=== PATIENT | male | born 1935 | race Caucasian/White ===

== ENCOUNTER 2017-06-20 10:23 | Observation (INO) | payer MEDICARE, BC ==
[2017-06-20] MEDS ORDERED: NS 0.9% 1000 ML* 1,000 ML IV ONE (10:34)
[2017-06-20 10:51] LABS: Hematocrit 42 % (42-52); Hemoglobin 14.4 g/dl (14.0-18.0); Mean Corpuscular HGB Conc 34 g/dl (31-36); Mean Corpuscular Hemoglobin 31 pg (27-31); Mean Corpuscular Volume 90 fL (80-94); Mean Platelet Volume 9 um3 (7.4-10.4); Red Blood Count 4.69 10^6/ul (4.0-5.4); Red Cell Distribution Width 15 % (10.5-15)
--- NOTE | 2017-06-20 10:52 | RAD ---
HISTORY: Neurological changes COMPARISONS: None TECHNIQUE: Multiple contiguous axial CT scans were obtained of the head without intravenous contrast. FINDINGS: HEMORRHAGE/INFARCT: There is no hemorrhage or acute infarct. MASSES/SHIFT: There is no mass or shift. EXTRA-AXIAL SPACES: There are no extra-axial fluid collections. SULCI AND VENTRICLES: A ventricular shunt catheter is noted from right frontal craniotomy approach with the tip in the body of the left lateral ventricle. There is no ventriculomegaly. CEREBRUM: There is left parietal encephalomalacia consistent with remote infarct BRAINSTEM: There are no focal parenchymal abnormalities. CEREBELLUM: There are no focal parenchymal abnormalities. VESSELS: There is calcification of the cavernous segments of the internal carotid arteries bilaterally. PARANASAL SINUSES: The paranasal sinuses are clear. ORBITS: The orbits are unremarkable. BONES AND SOFT TISSUE: No bone or soft tissue abnormalities are noted. OTHER: None IMPRESSION: . 1. STATUS POST VENTRICULAR SHUNTING. 2. EVIDENCE OF REMOTE LEFT PARIETAL INFARCT. 3. NO ACUTE INTRACRANIAL PATHOLOGY. 4. PRELIMINARY FINDINGS WERE DISCUSSED WITH DR. MEJIA IN THE EMERGENCY DEPARTMENT AT APPROXIMATELY 10:45 AM ON 2016.
[2017-06-20 11:04] LABS: Albumin 4.6 g/dL (3.2-5.2); BUN/Creatinine Ratio 17.8 (8-20); Calcium 9.9 mg/dL (8.6-10.3); EGFR African American 54.8 (>60); EGFR Non-African American 42.6 (>60); Globulin 3.1 g/dL (2-4); HDL Cholesterol 40.3 mg/dL; Potassium 4.6 mmol/L (3.5-5.0); Total Bilirubin 1.2 mg/dL (0.2-1.0); Total Protein 7.7 g/dL (6.4-8.9)
--- NOTE | 2017-06-20 11:11 | RAD ---
HISTORY: Neurological changes COMPARISONS: None VIEWS: 1: frontal portable view of the chest at 10:58 AM FINDINGS: LINES AND TUBES: A left-sided pacemaker is noted CARDIOMEDIASTINAL SILHOUETTE: The cardiomediastinal silhouette is normal for portable technique. PLEURA: The costophrenic angles are sharp. No pleural abnormalities are noted. LUNG PARENCHYMA: The lungs are clear. ABDOMEN: The upper abdomen is clear. There is no subphrenic gas. BONES AND SOFT TISSUES: The patient is status post median sternotomy. IMPRESSION: NO ACTIVE CARDIOPULMONARY DISEASE.
[2017-06-20 12:03] LABS: Urine Bilirubin Negative (Negative); Urine Glucose Negative (Negative); Urine Nitrite Negative (Negative)
[2017-06-20] MEDS ORDERED: Al Hydrox/Mg Hydrox/Simet LIQ* 30 ML UDC PO PRN (13:11)
--- NOTE | 2017-06-20 15:28 | CONS ---
NEUROLOGY CONSULTATION: DATE OF CONSULT: 06/20/17 REASON FOR CONSULT: Christina Whitehead. HISTORY OF PRESENT ILLNESS: Mr. Fine is an 81-year-old man with a history of left parietal stroke in February of this year, who made a good recovery as well as history of pacemaker placement within the last 2 months, in addition to SODA FLAKER shunt secondary to NPH as well as subarachnoid hemorrhage secondary to a fall who presented with right hand weakness/numbness, which he noticed when he woke up this morning. History is obtained from discussion with the patient as well as discussion with Dr. Ambrose, who spoke with the patient's . She is coming to [place] from [place] and will be available later today for further clarification. The patient is unable to tell me for certain whether he was normal when he woke up this morning. He noticed that he was having difficulty holding a bar of soap with his right hand. In addition, he specifically noticed difficulty with flexion of the first 3 fingers on the right hand and they felt numb as well. He denies any new speech or vision difficulties. He says he has been having a bit more trouble with his walking over the past week or so, but nothing dramatically different this morning. He spoke with his regarding these symptoms over the phone and she advised that he be brought to the emergency department. He is in town for a meeting for the [employer] [facility] and actually lives [employer] in [place] and [employer] [place]. It sounds like his regular physicians are in [place], [place]. After his stroke, he was started on a baby aspirin and he also takes a small dose of Crestor. Within the last 6 to 8 weeks, he has also been started on Aricept, which he says is for memory difficulties that he has been having, more so since his stroke. His stroke symptoms apparently involved weakness on his right side as well as sensory disturbance on the right side, mental status changes which the described as him not knowing her name or even who she was and also visual field loss, off to the right. He has apparently recovered quite well from all of this with little if any residual motor or sensory deficit. He has not driven since the stroke. Today, he denies any new headache. He feels that his hand has remained essentially the same since he noticed the onset of symptoms. PAST MEDICAL HISTORY: Likely incomplete as I am relying on the patient's recall of his history and he admits to not paying much attention to his medical history in general, but includes: 1. Left parietal stroke in February 2017. 2. Pacemaker placement within the last 2 months. 3. 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 4. Hyperlipidemia. 5. Subarachnoid hemorrhage, status post a minor fall. 6. Normal pressure hydrocephalus, status post SODA FLAKER shunt within the past 2 years. 7. The patient also reports that he had a left eye injury as a result of a tennis ball hitting him, which resulted in a pupillary injury. HOME MEDICATIONS: 1. Donepezil daily. 2. Aspirin 81 mg daily. 3. Crestor 5 mg daily. 4. Vitamin B12. 5. Vitamin D 2000 units daily. ALLERGIES: CLOPIDOGREL and LISINOPRIL which he started at the same time in the past and developed hypotension and hives. FAMILY HISTORY: Noncontributory at this time. SOCIAL HISTORY: He lives with his [place] REVIEW OF SYSTEMS: As per the HPI, otherwise negative. PHYSICAL EXAM: Vital Signs: Temperature 99, blood pressure 133/56, heart rate 72, oxygen saturation is 100% on room air. I note that there is the record of an oxygen saturation of 67% noted in the computer, but I suspect this is an error. On general examination, he is in no acute distress. He is an elderly pleasant gentleman. His heart is in a regular rate and rhythm with no murmurs, rubs or gallops. No carotid bruits are auscultated. The lungs are clear to auscultation bilaterally. There are some arthritic changes in the joints, but no erythema or swelling. Skin is notable for a well-healed pacemaker incision in the left upper chest. On neurologic examination, his speech is fluent without dysarthria or aphasia. He was able to state his age and the month, but it took him quite a bit of time to come up with the month. He was off on the exact date by 1 day. His pupils were unequal with the left being irregular and approximately 4 mm and poorly reactive while the right was 3 mm and briskly reactive to 2 mm. Versions are full without nystagmus. His dill are full to confrontation with no extinction to double simultaneous stimulation. Facial sensation and musculature are full and symmetric. Hearing is intact to voice. The palate elevates symmetrically and the tongue is midline. On motor examination, there is mildly increased tone in the right upper extremity. His strength is full throughout with the exception of digital marketing officer on the right as well as flexion in the second and third digits on the right hand. He had clumsy finger taps on the right. Sensation was intact to light touch and pin prick in the upper and lower extremities including all fingers on the right hand, but there was extinction distally to double simultaneous stimulation on the right side. Reflexes are 2+ in the upper and lower extremities with downgoing toes. No significant ataxia was noted. His gait is slightly wide based, but overall steady with his walking stick held in his right hand, but not typically placed down on the floor. DIAGNOSTIC STUDIES/LAB DATA: CBC was overall unremarkable, notable only for a slightly elevated monocyte percentage of 10.9%. Coagulation studies were normal. His CMP was notable for an elevated creatinine of 1.57 and BUN of 28, total bilirubin of 1.2. Non-fasting lipids show triglycerides of 220, cholesterol 150, LDL 66, HDL 40. His glucose was normal at 76. A non-contrast brain CT was obtained on arrival, but I have been unable to view that in the emergency department secondary to technical difficulty with the web browser. The report indicates there is no evidence for hemorrhage or acute or subacute infarction. There is a ventricular shunt noted from a right frontal craniotomy approach with the tip in the body of the left lateral ventricle. There is no significant ventriculomegaly. There is also left parietal encephalomalacia consistent with remote infarct. There is calcification of the cavernous segments of the internal carotid arteries noted bilaterally. IMPRESSION: Edgar Fine is an 81-year-old man with multiple neurologic problems including stroke affecting the left parietal region in February of this year on a baby aspirin and statin, who presented with recrudescence of symptoms , which are attributable to the area of his prior stroke. His NIH stroke scale today is notable only for the extinction to double simultaneous stimulation and may be an old finding. He does have some incoordination and weakness in his right hand which is not globally affected, but could be the result of a recurrent stroke versus, as mentioned, recrudescence of old symptoms. He should be admitted to the hospital for monitoring. We should get carotid ultrasound and continue him on his aspirin at this time. I am unaware at this time what the etiology of his previous stroke is thought to have been or the specific reason for his pacemaker implantation. I note that another possibility for his symptoms could be an unwitnessed seizure from this previous stroke, but there is no history obtained that suggests the loss of awareness or involuntary motor activity, but we could consider obtaining EEG if this becomes more of a possibility during the time of his admission. He is unable to get an MRI because of his pacemaker. Urinalysis will also be obtained to evaluate for any signs of urinary tract infection, which could be contributing to worsening of old symptoms. Thank you for this consultation. [id number]/MONALISA #: [id number] ADWOA
[2017-06-20] MEDS: Heparin VIAL(*) 5000 UNITS/ML VIAL (FIVE THOUSAND) SUBCUT SCH ×2 (16:16→23:12)
[2017-06-20] MEDS: NS 0.9% 1000 ML* 1,000 ML IV SCH (16:28)
--- NOTE | 2017-06-20 18:04 | RAD ---
INDICATION: CVA COMPARISON: CT brain June 20, 2017 TECHNIQUE: Transverse and longitudinal scans of the carotid and vertebral arteries were performed with bryant scale, color Doppler, and spectral Doppler imaging. Stenosis criteria is based on flow velocities that correlate with visual internal carotid artery diameter (NASCET criteria) FINDINGS: Right carotid: There is mild calcific plaque involving the bifurcation. There is no spectral broadening. The peak systolic velocity of the internal carotid artery is 163 cm/s and the peak diastolic velocity 19 cm/s. The ICA/CCA ratio is calculated at 1.1. This corresponds to a less than 50% diameter stenosis. Left carotid: There is mild calcific plaque involving the bifurcation. There is no spectral broadening. The peak systolic velocity of the internal carotid artery is 162 cm/s and the peak diastolic velocity 31 cm/s. The ICA/CCA ratio is calculated at 1.2. This corresponds to a less than 50% diameter stenosis. Right vertebral: Right vertebral waveforms are normal and the flow is antegrade. Left vertebral: Left vertebral waveforms are normal and the flow is antegrade. IMPRESSION: NO EVIDENCE OF A HEMODYNAMICALLY SIGNIFICANT STENOSIS. CPT II Codes: 3100F RS
--- NOTE | 2017-06-20 18:29 | HP ---
HISTORY AND PHYSICAL: DATE OF ADMISSION: 06/20/17 CHIEF COMPLAINT: Right hand numbness. HISTORY OF PRESENT ILLNESS: This is an 81-year-old man with history of a CVA in February 2017, presenting with right second and third digit numbness and weakness that began this morning. He noticed it when he first woke up and was unable to bindery manager cups or any other items. He notes a cold sensation in the second and third digits, but denies any other symptoms. He called his who encouraged him to come to the emergency department. He recalls that in his stroke in February, he had entire right upper extremity weakness and confusion. Of note, he has no residual deficits from his prior CVA and had reportedly regained all strength in all digits of his right upper extremity. He denies recent illness with cough , cold, sore throat, rhinorrhea, diarrhea, but he does note some dysuria. 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 MEDICATIONS: Current home medications; 1. Vitamin B12 5000 mcg daily. 2. Rosuvastatin 5 mg daily. 3. Aspirin 81 mg daily. 4. Vitamin D 2000 units daily. 5. Donepezil 10 mg daily. 6. Naproxen p.r.n. ALLERGIES: LISINOPRIL and PLAVIX. REVIEW OF SYSTEMS: Negative for weight gain or weight loss. Negative for headache, blurry vision, or dysphagia. He denies cough, chest pain, shortness of breath, palpitations. He denies gait abnormalities or recent falls. PHYSICAL EXAMINATION GENERAL: Alert, well-appearing man in no distress. VITAL SIGNS: Temperature 97.2, heart rate 74, pulse ox 91% on room air, blood pressure 134/63, respiratory rate 18. HEENT: Left pupillary defect due to a tennis injury. Left pupil is 4 mm and mildly reactive to light. Right pupil is 2 mm and reactive to light. Extraocular movements are intact. No nystagmus is noted. Moist mucosa. NECK: No lymphadenopathy. No JVP. Thyroid nonpalpable. CHEST: Pacemaker on left chest wall. LUNGS: Clear bilaterally. HEART: Regular rate and rhythm. No murmurs. PMI is nondisplaced. ABDOMEN: Soft, nontender, nondistended. EXTREMITIES: Strength 5+ bilaterally. No edema, no ecchymosis. NEUROLOGIC: Oriented x3. Speech intact. Upper extremity strength is 5+ except in his right second digit which is 3+ and third digit is 4+. He does have some dysdiadochokinesia in the right upper extremity. Reflexes are 2+ and finger-to- nose is intact. LABORATORY DATA: Labs on admission; hemoglobin 14.4, white blood cells 8.0, platelets 173,000. Sodium 138, potassium 4.6, chloride 106, bicarb 25, BUN 28, creatinine 1.57, glucose 76. EKG on admission, normal sinus rhythm with first degree heart block, left axis and right bundle-branch block. ASSESSMENT AND PLAN: This is an 81-year-old man with history of cerebrovascular accident in February of this year, presenting with right index finger weakness. 1. Cerebrovascular accident, recrudescent symptoms. A CT of head showed no acute intracranial abnormality and unfortunately, he is unable to get an MRI due to his pacemaker. It is possible that an infectious or metabolic cause led to his recrudescent symptoms; however, his symptoms today are not entirely reflective of his symptoms in February. Neurology has been consulted and seen Mr. Fine in the emergency department. We will monitor him on telemetry and consult occupational therapy for therapy of the right upper extremity. We will complete an infectious workup and continue statin and aspirin. It is unclear why he was on such a low dose of statin, so I am increasing him to atorvastatin 40 mg daily as there is suspicion that he had a repeat cerebrovascular accident while on aspirin. He may benefit from additional antiplatelet therapy; however , PLAVIX is noted as an allergy for him; however, he does not know his reaction. 2. Acute kidney injury versus chronic kidney disease. We have no creatinine for comparison; however, he does report limiting his p.o. intake due to urinary incontinence associated with normal pressure hydrocephalus, so it is possible that he does have some prerenal injury. At this time, we will trial gentle IV fluids and recheck renal function in the morning. 3. Cognitive dysfunction since CVA. Continue donepezil. 4. Coronary artery disease status post CABG. Continue aspirin and statin as above. 5. Normal pressure hydrocephalus, PLUMBING HARDWARE ASSEMBLER shunt is noted on his CT scan. It is unlikely that this is contributing to his symptoms this morning. 6. DVT prophylaxis. Heparin subcutaneously. [id number]/[facility] #: [id number] ADWOA
[2017-06-20] MEDS ORDERED: Atorvastatin* 40 MG TAB PO SCH (21:00)
[2017-06-20] MEDS ORDERED: Donepezil TAB* 5 MG PO SCH (21:00)
--- NOTE | 2017-06-20 22:28 | ED ---
Jules Mcarthur Thomas, scribed for Edgar Ambrose MD on 06/20/17 at 1047 . Neurological HPI - HPI Summary HPI Summary: The patient is an 81 y/o M with a Hx of CVA on 02/23/17 who presents to the ED c /o neurological deficits that began today between 07:00 and 08:00. He describes an inability to close his left hand and hold objects in his left hand. He says that he repeatedly dropped the soap in the shower this AM and he could not button his shirt. He additionally complains of minor problems with his gait in the last two days. He also says he has intermittent minor confusion throughout this AM. In the ED the patient denies slurred speech, CP, SOB, BARR, or any other pain. After the patients previous CVA, he was aphasic, had no balance, and could not walk. Since then, his speech and deficits have dramatically improved, although he does note some residual motor deficits in his right hand. He denies any recent stress, although he did recently drive from [place]. PMHx: CVA, Reynaulds, CAD, NPH, SAH. PSHx: pacemaker, BAKED AND GRAPHITE INSPECTOR shunt, two spinal operations, cardiac stents. NIH 0. I spoke with the patients , who gave me additional history about his CVA in February. That stroke started with vertigo, R-sided paralysis, confusion, and disorientation. He was not given tPA because of a prvious SAH after a fall. Quickly over the course of a couple days he regained all but fine motor control of his right hand and some gait problems. Then, through physical therapy he regained his gain and improved fine motor control except that his handwriting is still poor. He had a syncopal episode two months ago and after this he wore an event monitor that showed an intermittent heart block for which a pacer was placed. 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 - History of Current Complaint Chief Complaint: EDNeurologicalDeficit Stated Complaint: POSS STROKE Hx Obtained From: Patient Onset/Duration: Sudden Onset, Started hours ago - onset between 07:00 and 08:00 today, Still Present Timing: Constant Current Severity: Mild Pain Intensity: 0 Pain Scale Used: 0-10 Numeric Character: Motor Weakness - with his left hand, Confusion - intermittent this AM and minor Aggravating: Nothing Alleviating: Nothing Associated Signs and Symptoms: Positive: Confusion - intermittent and minor. Negative: Headache, Impaired Speech, Chest Pain, Shortness of Breath Similar Episode/Dx as: Somewhat similar to prior CVA - Allergy/Home Medications Allergies/Adverse Reactions: Allergies Allergy/AdvReac Type Severity Reaction Status Date / Time Clopidogrel [From Plavix] Allergy Unknown Verified 06/20/17 11:18 Reaction Details Lisinopril Allergy Unknown Verified 06/20/17 11:18 Reaction Details Home Medications: Home Medications Aspirin EC Low Dose* [Ecotrin EC Low Dose 81 MG*] 81 mg PO DAILY 06/20/17 [ History Confirmed 06/20/17] Cholecalciferol TAB* [Vitamin D TAB*] 2,000 units PO DAILY 06/20/17 [History Confirmed 06/20/17] Cyanocobalamin [Vitamin B-12] 5,000 mcg PO DAILY 06/20/17 [History Confirmed ] Donepezil TAB* [Aricept 5 MG TAB*] 10 mg PO DAILY 06/20/17 [History Confirmed ] Naproxen Sodium [Naproxen Sodium 220 mg] 220 mg PO Q6HR PRN 06/20/17 [History Confirmed 06/20/17] Rosuvastatin (NF) [Crestor (NF)] 5 mg PO DAILY 06/20/17 [History Confirmed 06/20] PMH/Surg Hx/FS Hx/Imm Hx Previously Healthy: No Cardiovascular History: Reports: Hx Coronary Artery Disease Neurological History: Reports: Hx CVA, Other Neuro Impairments/Disorders - Hx SAH, Reynauld's - Surgical History Surgery Procedure, Year, and Place: pacemaker, BAKED AND GRAPHITE INSPECTOR shunt, two spinal operations, cardiac stents. Infectious Disease History: Denies: Traveled Outside the [place] in Last 30 Days - Family History Known Family History: Positive: Other - POS: CVA - Social History Alcohol Use: Occasionally Hx Substance Use: No Substance Use Type: Reports: None Hx Tobacco Use: No Smoking Status (MU): Never Smoked Tobacco Review of Systems Negative: Fever Negative: Chest Pain Negative: Shortness Of Breath Negative: Other - NEG: any other pain Neurological: Other - POS: left hand motor deficits (onset 08:00), problems with gait (onset two days ago), intermittent confusion (throughout this AM) Negative: Headache, Slurred Speech All Other Systems Reviewed And Are Negative: Yes Physical Exam Triage Information Reviewed: Yes Vital Signs On Initial Exam: Initial Vitals Temp Pulse Resp BP Pulse Ox 97.9 F 80 10 147/90 99 06/20/17 10:25 06/20/17 10:25 06/20/17 10:25 06/20/17 10:25 06/20/17 10:25 Vital Signs Reviewed: Yes Appearance: Positive: Well-Appearing, No Pain Distress Skin: Positive: Warm, Skin Color Reflects Adequate Perfusion, Dry Head/Face: Positive: Normal Head/Face Inspection Eyes: Positive: Normal ENT: Positive: Normal ENT inspection Neck: Positive: Supple, Nontender Respiratory/Lung Sounds: Positive: Clear to Auscultation, Breath Sounds Present Cardiovascular: Positive: RRR Abdomen Description: Positive: Nontender, Soft Bowel Sounds: Positive: Present Musculoskeletal: Positive: Normal Neurological: Positive: Normal, Sensory/Motor Intact, Alert, Oriented to Person Place, Time, CN Intact II-III Psychiatric: Positive: Normal, Affect/Mood Appropriate Diagnostics - Vital Signs Vital Signs Temp Pulse Resp BP Pulse Ox 06/20/17 10:25 97.9 F 80 10 147/90 99 - Laboratory Lab Results: Lab Results 06/20/17 06/20/17 06/20/17 Range/Units 10:28 10:28 10:28 WBC 8.0 (3.5-10.8) 10^3/ul RBC 4.69 (4.0-5.4) 10^6/ul Hgb 14.4 (14.0-18.0) g/dl Hct 42 (42-52) % MCV 90 (80-94) fL MCH 31 (27-31) pg MCHC 34 (31-36) g/dl RDW 15 (10.5-15) % Plt Count 173 (150-450) 10^3/ul MPV 9 (7.4-10.4) um3 Neut % (Auto) 58.5 (38-83) % Lymph % (Auto) 26.3 (25-47) % [place] % (Auto) 10.9 H (1-9) % Eos % (Auto) 3.6 (0-6) % Baso % (Auto) 0.7 (0-2) % Absolute Neuts (auto) 4.7 (1.5-7.7) 10^3/ul Absolute Lymphs (auto) 2.1 (1.0-4.8) 10^3/ul Absolute Monos (auto) 0.9 H (0-0.8) 10^3/ul Absolute Eos (auto) 0.3 (0-0.6) 10^3/ul Absolute Basos (auto) 0.1 (0-0.2) 10^3/ul Absolute Nucleated RBC 0 10^3/ul Nucleated RBC % 0 INR (Anticoag Therapy) 0.91 (0.89-1.11) APTT 30.4 (26.0-36.3) seconds Sodium 138 (133-145) mmol/L Potassium 4.6 (3.5-5.0) mmol/L Chloride 106 (101-111) mmol/L Carbon Dioxide 25 (22-32) mmol/L Anion Gap 7 (2-11) mmol/L BUN 28 H (6-24) mg/dL Creatinine 1.57 H (0.67-1.17) mg/dL Est GFR ( Amer) 54.8 (>60) Est GFR (Non-Af Amer) 42.6 (>60) BUN/Creatinine Ratio 17.8 (8-20) Glucose 76 (70-100) mg/dL POC Glucose (mg/dL) (70-100) mg/dL Lactic Acid (0.5-2.0) mmol/L Calcium 9.9 (8.6-10.3) mg/dL Total Bilirubin 1.20 H (0.2-1.0) mg/dL AST 22 (13-39) U/L ALT 14 (7-52) U/L Alkaline Phosphatase 47 (34-104) U/L Troponin I 0.00 (<0.04) ng/mL Total Protein 7.7 (6.4-8.9) g/dL Albumin 4.6 (3.2-5.2) g/dL Globulin 3.1 (2-4) g/dL Albumin/Globulin Ratio 1.5 (1-3) Triglycerides 220 mg/dL Cholesterol 150 mg/dL LDL Cholesterol 66 mg/dL HDL Cholesterol 40.3 mg/dL Urine Color Urine Appearance Urine pH (5-9) Ur Specific [place] (1.010-1.030) Urine Protein (Negative) Urine Ketones (Negative) Urine Blood (Negative) Urine Nitrate (Negative) Urine Bilirubin (Negative) Urine Urobilinogen (Negative) Ur Leukocyte Esterase (Negative) Urine Glucose (Negative) Urine Ascorbic Acid (Negative) Blood Type Antibody Screen 06/20/17 06/20/17 06/20/17 Range/Units 10:28 10:28 10:48 WBC (3.5-10.8) 10^3/ul RBC (4.0-5.4) 10^6/ul Hgb (14.0-18.0) g/dl Hct (42-52) % MCV (80-94) fL MCH (27-31) pg MCHC (31-36) g/dl RDW (10.5-15) % Plt Count (150-450) 10^3/ul MPV (7.4-10.4) um3 Neut % (Auto) (38-83) % Lymph % (Auto) (25-47) % [place] % (Auto) (1-9) % Eos % (Auto) (0-6) % Baso % (Auto) (0-2) % Absolute Neuts (auto) (1.5-7.7) 10^3/ul Absolute Lymphs (auto) (1.0-4.8) 10^3/ul Absolute Monos (auto) (0-0.8) 10^3/ul Absolute Eos (auto) (0-0.6) 10^3/ul Absolute Basos (auto) (0-0.2) 10^3/ul Absolute Nucleated RBC 10^3/ul Nucleated RBC % INR (Anticoag Therapy) (0.89-1.11) APTT (26.0-36.3) seconds Sodium (133-145) mmol/L Potassium (3.5-5.0) mmol/L Chloride (101-111) mmol/L Carbon Dioxide (22-32) mmol/L Anion Gap (2-11) mmol/L BUN (6-24) mg/dL Creatinine (0.67-1.17) mg/dL Est GFR ( Amer) (>60) Est GFR (Non-Af Amer) (>60) BUN/Creatinine Ratio (8-20) Glucose (70-100) mg/dL POC Glucose (mg/dL) 87 (70-100) mg/dL Lactic Acid 1.1 (0.5-2.0) mmol/L Calcium (8.6-10.3) mg/dL Total Bilirubin (0.2-1.0) mg/dL AST (13-39) U/L ALT (7-52) U/L Alkaline Phosphatase (34-104) U/L Troponin I (<0.04) ng/mL Total Protein (6.4-8.9) g/dL Albumin (3.2-5.2) g/dL Globulin (2-4) g/dL Albumin/Globulin Ratio (1-3) Triglycerides mg/dL Cholesterol mg/dL LDL Cholesterol mg/dL HDL Cholesterol mg/dL Urine Color Urine Appearance Urine pH (5-9) Ur Specific [place] (1.010-1.030) Urine Protein (Negative) Urine Ketones (Negative) Urine Blood (Negative) Urine Nitrate (Negative) Urine Bilirubin (Negative) Urine Urobilinogen (Negative) Ur Leukocyte Esterase (Negative) Urine Glucose (Negative) Urine Ascorbic Acid (Negative) Blood Type A Positive Antibody Screen Negative 06/20/17 Range/Units 11:35 WBC (3.5-10.8) 10^3/ul RBC (4.0-5.4) 10^6/ul Hgb (14.0-18.0) g/dl Hct (42-52) % MCV (80-94) fL MCH (27-31) pg MCHC (31-36) g/dl RDW (10.5-15) % Plt Count (150-450) 10^3/ul MPV (7.4-10.4) um3 Neut % (Auto) (38-83) % Lymph % (Auto) (25-47) % [place] % (Auto) (1-9) % Eos % (Auto) (0-6) % Baso % (Auto) (0-2) % Absolute Neuts (auto) (1.5-7.7) 10^3/ul Absolute Lymphs (auto) (1.0-4.8) 10^3/ul Absolute Monos (auto) (0-0.8) 10^3/ul Absolute Eos (auto) (0-0.6) 10^3/ul Absolute Basos (auto) (0-0.2) 10^3/ul Absolute Nucleated RBC 10^3/ul Nucleated RBC % INR (Anticoag Therapy) (0.89-1.11) APTT (26.0-36.3) seconds Sodium (133-145) mmol/L Potassium (3.5-5.0) mmol/L Chloride (101-111) mmol/L Carbon Dioxide (22-32) mmol/L Anion Gap (2-11) mmol/L BUN (6-24) mg/dL Creatinine (0.67-1.17) mg/dL Est GFR ( Amer) (>60) Est GFR (Non-Af Amer) (>60) BUN/Creatinine Ratio (8-20) Glucose (70-100) mg/dL POC Glucose (mg/dL) (70-100) mg/dL Lactic Acid (0.5-2.0) mmol/L Calcium (8.6-10.3) mg/dL Total Bilirubin (0.2-1.0) mg/dL AST (13-39) U/L ALT (7-52) U/L Alkaline Phosphatase (34-104) U/L Troponin I (<0.04) ng/mL Total Protein (6.4-8.9) g/dL Albumin (3.2-5.2) g/dL Globulin (2-4) g/dL Albumin/Globulin Ratio (1-3) Triglycerides mg/dL Cholesterol mg/dL LDL Cholesterol mg/dL HDL Cholesterol mg/dL Urine Color Straw Urine Appearance Clear Urine pH 5.0 (5-9) Ur Specific [place] 1.011 (1.010-1.030) Urine Protein Negative (Negative) Urine Ketones Negative (Negative) Urine Blood Negative (Negative) Urine Nitrate Negative (Negative) Urine Bilirubin Negative (Negative) Urine Urobilinogen Negative (Negative) Ur Leukocyte Esterase Negative (Negative) Urine Glucose Negative (Negative) Urine Ascorbic Acid * H (Negative) Blood Type Antibody Screen Result Diagrams: 06/20/17 10:28 06/20/17 10:28 Lab Statement: Any lab studies that have been ordered have been reviewed, and results considered in the medical decision making process. - Radiology CXR Xray Interpretation: No Acute Changes - CXR reveals no active cardiopulmonary disease. ED Physician has reviewed this report and agrees. Radiology Interpretation Completed By: Radiologist - CT CT Brain CT Interpretation: No Acute Changes - 1. STATUS POST VENTRICULAR SHUNTING. 2. EVIDENCE OF REMOTE LEFT PARIETAL INFARCT. 3. NO ACUTE INTRACRANIAL PATHOLOGY. ED Physician has reviewed this report and agrees. CT Interpretation Completed By: Radiologist - EKG 10:43 Cardiac Rate: NL - 72 BPM EKG Interpretation: Sinus rhythm. RBBB. Nonspecified infeior changes. 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 Non-Paretic Hand: Both Correctly Best Gaze (Only Horizontal Eye Movement): Normal Visual Field Testing: No Visual Loss Facial Paresis-Pt to Smile & Close Eyes or Grimace Symmetry: Normal/Symmetrical Motor Function - Right Arm: No Drift-Holds 10 Seconds Motor Function - Left Arm: No Drift-Holds 10 Seconds Motor Function - Right Leg: No Drift-Holds 10 Seconds Motor Function - Left Leg: No Drift-Holds 10 Seconds Limb Ataxia-Must be out of Proportion to Weakness Present: Absent Sensory (Use Pinprick to Test Arms/Legs/Trunk/Face): Normal Best Language (Describe Picture, Name Items): No Aphasia Dysarthria (Read Several Words): Normal Extinction and Inattention: No Abnormality Total Score: 0 Course/Dx - Course Course Of Treatment: A Code Reddy was ordered on Mr. Fine's arrival and Dr. Begum came to see him. He was admitted for further W/U by the hospitalists. - Diagnoses Provider Diagnoses: CVA (cerebral vascular accident) - Physician Notifications Discussed Care Of Patient With: Mihaela Begum Time Discussed With Above Provider: 10:32 Instructed by Provider To: Other - I consulted with Dr. Begum, neurology, and she was made aware of the patient. She came to the ED at 10:52 to assess the patient. I also consulted with Dr. Herbert, hospitalist, who admits the patient at 11:40. Discharge - Discharge Plan Condition: Fair Disposition: ADMITTED TO [facility] Discharge Disposition Comment: By Keon at 11:40 The documentation as recorded by the Jules pickett Thomas accurately reflects the service I personally performed and the decisions made by me, Edgar Ambrose MD.
[2017-06-21] MEDS: NS 0.9% 1000 ML* 1,000 ML IV SCH ×2 (00:54→08:42)
[2017-06-21 04:52] LABS: Hematocrit 37 % (42-52); Hemoglobin 12.7 g/dl (14.0-18.0); Mean Corpuscular HGB Conc 34 g/dl (31-36); Mean Corpuscular Hemoglobin 31 pg (27-31); Mean Corpuscular Volume 91 fL (80-94); Mean Platelet Volume 9 um3 (7.4-10.4); Red Cell Distribution Width 15 % (10.5-15); White Blood Count 7.6 10^3/ul (3.5-10.8)
[2017-06-21 05:19] LABS: Albumin 3.6 g/dL (3.2-5.2); Calcium 8.9 mg/dL (8.6-10.3); EGFR African American 65.2 (>60); EGFR Non-African American 50.7 (>60); Globulin 2.3 g/dL (2-4); Potassium 4.1 mmol/L (3.5-5.0); Total Bilirubin 0.9 mg/dL (0.2-1.0); Total Protein 5.9 g/dL (6.4-8.9)
[2017-06-21] MEDS: Heparin VIAL(*) 5000 UNITS/ML VIAL (FIVE THOUSAND) SUBCUT SCH (06:21)
[2017-06-21 08:02] VITALS: BP 126/60
[2017-06-21] MEDS ORDERED: Cholecalciferol TAB* 1000 UNITS PO SCH (09:00)
[2017-06-21] MEDS ORDERED: Aspirin EC Low Dose* 81 MG TAB.EC PO SCH (09:00)
--- NOTE | 2017-06-21 11:18 | PN ---
Subjective Date of Service: 06/21/17 Interval History: Patient seen and examined at bedside. Denies fever, chills, shortness of breath , chest discomfort, N/V/D. Pt states that his control of his right index and middle fingers has improved. His is able to open and close his hand today. Per Pt's he had right arm weakness and loss of right visual field with his stroke in February, he reports that the right visual field loss has resolved. Pt's Madhavi also reports that the Pt has baseline CKD, she is unsure of the stage. Tele: Sinus rhythm to paced, rate 60-70's. Family History: Unchanged from Admission Social History: Unchanged from Admission Past Medical History: Unchanged from Admission Objective Active Medications: Al Hydrox/Mg Hydrox/Simethicone (Maalox Plus*) 30 ml PO Q6H PRN Reason: INDIGESTION Aspirin (Aspirin Ec Low Dose*) 81 mg PO DAILY MIKE Atorvastatin Calcium (Lipitor*) 40 mg PO 2100 MIKE Cholecalciferol (Vitamin D Tab*) 2,000 units PO DAILY MIKE Donepezil HCl (Aricept Tab*) 10 mg PO BEDTIME MIKE Heparin Sodium (Porcine) (Heparin Vial(*)) 5,000 units SUBCUT Q8HR MIKE Sodium Chloride (Ns 0.9% 1000 Ml*) 1,000 mls @ 125 mls/hr IV PER RATE MIKE Vital Signs 06/20/17 06/20/17 06/20/17 12:00 12:30 13:00 Temperature Pulse Rate 70 Respiratory 15 19 14 Rate Blood Pressure 145/64 152/68 117/55 (mmHg) O2 Sat by Pulse 99 Oximetry 06/20/17 06/20/17 06/20/17 13:30 13:49 15:44 Temperature 97.2 F 97.7 F Pulse Rate 74 73 Respiratory 16 18 18 Rate Blood Pressure 134/63 127/60 (mmHg) O2 Sat by Pulse 91 95 Oximetry 06/20/17 06/20/17 06/20/17 19:16 19:35 23:55 Temperature 97.9 F 97.6 F Pulse Rate 78 66 Respiratory 18 20 Rate Blood Pressure 116/53 118/54 (mmHg) O2 Sat by Pulse 100 96 Oximetry 06/21/17 06/21/17 03:52 08:00 Temperature 97.4 F 97.8 F Pulse Rate 63 72 Respiratory 20 16 Rate Blood Pressure 120/58 126/60 (mmHg) O2 Sat by Pulse 94 98 Oximetry Oxygen Devices in Use Now: None Appearance: NAD, laying in bed Ears/Nose/Mouth/Throat: Mucous Membranes Moist Respiratory: Symmetrical Chest Expansion and Respiratory Effort, Clear to Auscultation Cardiovascular: NL Sounds; No Murmurs; No JVD, RRR Abdominal: NL Sounds; No Tenderness; No Distention Extremities: No Edema Skin: No Rash or Ulcers Neurological: Alert and Oriented x 3, NL Muscle Strength and Tone, - - Smile symmetric, tongue midline, hand fire patroller equal, and able to perform finger to nose bilateral Lines/Tubes/Other Access: Clean, Dry and Intact Peripheral IV - site benign Nutrition: Taking PO's Result Diagrams: 06/21/17 04:22 06/21/17 04:23 Additional Lab and Data: Assess/Plan/Problems-Billing Assessment: Mr. Fine is an 81 yo male with PMH significant for CVA in February 2017, NPH s/p HOTEL BREAKFAST ATTENDANT shunt, CAD s/p CABG, s/p pacemaker insertion and hx SAH who presented to the emergency room with complaints of right index and middle finger weakness. - Patient Problems (1) CVA (cerebral vascular accident) Code(s): I63.9 - CEREBRAL INFARCTION, UNSPECIFIED SNOMED Code(s): 627503558 Comment: - Right hand weakness resolved - ? recrudescent symptoms - Head CT shows noo acute IC abnormality - Unable to get an MRI d/t pacemaker - UA negative - Carotid doppler - no significant stenosis - Lipids WNL (2) CKD (chronic kidney disease) Code(s): N18.9 - CHRONIC KIDNEY DISEASE, UNSPECIFIED SNOMED Code(s): 218103445 Comment: - Per Pt's , but she is unsure of what stage - (3) Cognitive dysfunction Code(s): F09 - UNSP MENTAL DISORDER DUE TO KNOWN PHYSIOLOGICAL CONDITION SNOMED Code(s): 394713565 Comment: - Since CVA - Continue donepezil (4) CAD (coronary artery disease) Code(s): I25.10 - ATHSCL HEART DISEASE OF [place] CORONARY ARTERY W/O ANG PCTRS SNOMED Code(s): 40430099 Comment: - s/p CABG - Continue ASA and Crestor (5) NPH (normal pressure hydrocephalus) Code(s): G91.2 - (IDIOPATHIC) NORMAL PRESSURE HYDROCEPHALUS SNOMED Code(s): 63573376 Comment: - S/P HOTEL BREAKFAST ATTENDANT shunt (6) DVT prophylaxis Code(s): TPU7093 - SNOMED Code(s): 896650574 (7) Full code status Code(s): Z78.9 - OTHER SPECIFIED HEALTH STATUS SNOMED Code(s): 574874757 Status and Disposition: OBV. Plan for discharge to home today if cleared by Neurology.
--- NOTE | 2017-06-22 06:04 | DS ---
CC: Dr. Dom Yap in [place], [place], ; Dr. Glenroy Wren in [place], [place], ; Dr. Mihaela Begum * DISCHARGE SUMMARY: DATE OF ADMISSION: 06/20/17 DATE OF DISCHARGE: 06/21/17 ATTENDING PHYSICIAN: Reji Baez MD * (DICTATION BY ZACHERY VITAL NP) PRIMARY CARE PROVIDERS: Dr. Dom Yap in [place], [place] and Dr. Glenroy Wren of [place], [place]. CONSULTATIONS WHILE IN THE HOSPITAL: Dr. Mihaela Begum with Neurology. STUDIES WHILE IN THE HOSPITAL: 1. Brain CT on 06/20/17. Radiologist's impression: Status post ventricular shunting. Evidence of remote left parietal infarct. No acute intracranial pathology. 2. Chest x-ray from 06/20/17. Radiologist's impression: No active cardiopulmonary disease. 3. Carotid Doppler study from 06/20/17. Radiologist's impression: No evidence of a hemodynamically significant stenosis. DISCHARGE MEDICATIONS: Continued home medications: 1. Vitamin B12 5000 mcg oral daily. 2. Naproxen 220 mg oral every 6 hours as needed for pain. 3. Vitamin D 2000 units oral daily. 4. Crestor 5 mg oral daily. 5. Aricept 10 mg oral daily. 6. Aspirin 81 mg oral daily. HISTORY OF PRESENT ILLNESS/HOSPITAL COURSE: Mr. Fine is an 81-year-old male with past medical history significant for NPH, status post MACHINE MOVER shunt; coronary artery disease; status post CABG; history of CVA in February 2017; status post pacemaker insertion and status post subarachnoid hemorrhage who presented to the emergency room with complaints of numbness and weakness in his right index and middle finger that began on the morning of 06/20/17. The patient noticed when he first woke up numbness and tingling in his right hand, then he noticed he is unable to inspector set up and lay out cups or any items with h is right hand. He noted a cold sensation in the second and third digits of his right hand, but denied any other symptoms. It is also of note that the patient has a history of Raynaud's syndrome. It is also to note that during the patient's February 2017 stroke he had right upper extremity weakness, confusion, and loss of his right visual field. He had no residual defects from that prior CVA and he regained all strength in all of his digits of the right hand and right upper extremity. The patient denied any recent cold, sore throat, cough, but did endorse some dysuria. Due to all of these symptoms, the patient presented to the emergency room for evaluation of his symptoms. The patient called his who is in [place] and she encouraged him to present to the emergency room for evaluation of his symptoms. While in the emergency room, the patient had a brain CT showing no acute intracranial abnormalities. He had labs that were fairly unremarkable. He was noted to have an elevated BUN and creatinine. He had an EKG showing sinus rhythm with a first degree heart block and a right bundle-branch block. The patient was seen in consultation by Dr. Begum with Neurology who felt that the patient's incoordination and weakness in his right hand could be the result of a recurrent stroke versus recrudescence of old symptoms. The hospitalists were asked to evaluate the patient for admission. While in the hospital the patient underwent a carotid ultrasound showing no significant stenosis. He was continued on aspirin. His LFTs were in normal limits. He was continued on his home Crestor. Due to the patient having a history of what sounds to be like angioedema when he took lisinopril and Plavix , he was not started on Plavix. The patient had a negative urinalysis. It is ultimately felt that the patient's symptoms may be likely due to him being slightly dehydrated and worn down and his symptoms have essentially resolved during his hospitalization. The patient's elevated BUN resolved. He continued to have slightly elevated creatinine at 1.35. According to the patient's , Madhavi, the patient has a history of chronic kidney disease, although she is unsure of what stage chronic kidney disease he has. The patient was felt to be stable for discharge to home today. Mr. Fine is stable for discharge to home today. Vital signs are as follows: Temperature 97.8, heart rate 72, respiratory rate 16, O2 sat 98% on room air, blood pressure 126/60. DISCHARGE PLAN: Mr. Fine will be discharged to home and his will drive him back to [place] today. The patient should be in followup by his primary care provider, Dr. Dom Yap in [place], [place]. Dr. Yap's office will call the patient with an appointment date and time as our computers are down at this time. The patient's has been instructed to give Dr. Yap's office a call if they do not hear from the office by next week to set up a followup appointment. Dr. Yap's office will assist the patient and in setting up a followup visit with a neurologist local to them in [place]. The patient had no changes in his medications, so will resume his usual medications. The patient has been instructed to return to the emergency room for any chest pain, shortness of breath, return of stroke symptoms such as facial drooping, slurred speech or one-sided weakness. This is a summarized report of a complex medical history and hospital stay. For further details, please see the entire medical record. TIME SPENT: Time for this discharge was approximately 50 minutes, greater than half of that was spent with the patient and discussing discharge plans and instructions. CONDITION ON DISCHARGE: Stable. Reviewed by DAKOTA AGUIRRE 06/23/17 1844 [id number]/[facility] #: [id number] ADWOA
--- NOTE | 2017-06-22 07:59 | PN ---
PROGRESS NOTE: DATE OF FOLLOWUP: 06/21/17 HISTORY: Overnight, the patient has had significant improvement in his right hand function. His wi fe is at the bedside and eager to take him home. 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 His carotid ultrasound was completed and showed no si gnificant stenosis. He has physicians that he will be able to follow up with in [place] and the y are eager to go home. MEDICATIONS: Reviewed and include: 1. Aspirin 81 mg daily. 2. Lipitor 40 mg daily. 3. Donepezil 10 mg at nighttime. 4. Vitamin D 2000 units daily. 5. IV fluids. PHYSICAL EXAM: Vital Signs: Temperature 97.8, blood pressure 126/60, heart rate 72, oxygen saturat ion 98% on room air. On general examination, he is in no acute distress. He is a pleasant elderly man who appears his st ated age. He is fully oriented. Speech is fluent without dysarthria or aphasia. His face is symme tric. On focused examination, his right hand pastrycook is full today. His activation of the 3 fingers o n the right hand is much more smooth and normal today. Sensation is intact to light touch in the up per and lower extremities with no further extinction to double simultaneous stimulation from proxima l to distal. DIAGNOSTIC STUDIES: Carotid ultrasound reviewed as per the HPI and negative for any significant dragan nosis. 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 Today, his deficits have resolved. He received IV fluids o vernight as his labs did appear to suggest that he was dehydrated. 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 He addition he told me that he slept very poorly the night prior to presentation getting on ly approximately 2 hours of sleep. His indicates that he is not used to having meetings that l ast all day long and this trip here to [place] is the first time he has had to do this since his stro ke. It seems most likely at this point that he may have come in with an anamnestic response in the setting of dehydration and sleep deprivation. I did not recommend any changes to his antiplatelet r egimen or statin. His is aware that he should follow up as soon as possible with his primary c are physician in [place] and she is able to get him in with a neurologist as well. [id number]/[facility] #: [id number]
== END 2017-06-21 12:41 | disposition home or self-care (01) ==
LOC: ED 10:23 → MEDTELE 11:40
PROVIDERS: ADMIT Internal Medicine; ATTEND Hospitalist
DX: R20.0 Anesthesia of skin (principal); N18.9 Chronic kidney disease, unspecified; I25.10 Atherosclerotic heart disease of native coronary artery without angina pectoris; Z95.1 Presence of aortocoronary bypass graft; Z86.73 Personal history of transient ischemic attack (TIA), and cerebral infarction without residual deficits; Z95.0 Presence of cardiac pacemaker; F09 Unspecified mental disorder due to known physiological condition; I45.10 Unspecified right bundle-branch block; Z79.82 Long term (current) use of aspirin; Z79.899 Other long term (current) drug therapy; Z88.8 Allergy status to other drugs, medicaments and biological substances
CPT/HCPCS: 36415; 70450; 71010; 80053; 80061; 81003; 83605; 84484; 85025; 85610; 85730; 86850; 86900; 86901; 93005; 93880; 96360; 96361; 96372; 99284; A9270-GY; G0378; G8987-GO-CI; G8988-GO-CI; G8989-GO-CI; J1644